=== PATIENT | male | born 1960 | race Hispanic/Latino ===

== ENCOUNTER 2016-11-17 07:47 | Emergency (ER) | payer MEDICAID | END 2016-11-17 08:00 | disposition left against medical advice (07) | LOC: ED 07:47 | DX: R10.10 Upper abdominal pain, unspecified (principal); M54.9 Dorsalgia, unspecified; Z53.21 Procedure and treatment not carried out due to patient leaving prior to being seen by health care provider ==

== ENCOUNTER 2017-02-14 08:39 | Emergency (ER) | payer MEDICAID ==
[2017-02-14 08:50] VITALS: BP 108/78
[2017-02-14 09:16] LABS: Basophils % (Auto) 1.1 % (0.0-1.8); Eosinophils % (Auto) 0.9 % (0.0-4.3); Hematocrit 30.8 % (35.5-45.6); Mean Corpuscular HGB Conc 33 % (32-34); Mean Corpuscular Hemoglobin 27 pg (28-32); Mean Corpuscular Volume 83 fl (84-94); Platelet Count 120 K/mm3 (140-440); Red Blood Count 3.71 M/mm3 (3.65-5.03); White Blood Count 4.4 K/mm3 (4.5-11.0)
[2017-02-14 09:33] LABS: Anion Gap 18 mmol/L; BUN/Creatinine Ratio 8.33; Blood Urea Nitrogen 5 mg/dL (9-20); Calcium 8.1 mg/dL (8.4-10.2); Carbon Dioxide 23 mmol/L (22-30); Chloride 102.6 mmol/L (98-107); Glucose 93 mg/dL (75-100); Potassium 3.8 mmol/L (3.6-5.0); Sodium 140 mmol/L (137-145)
[2017-02-14 09:36] LABS: Red Cell Distribution Width 23.8 % (13.2-15.2)
[2017-02-14 09:44] LABS: Bilirubin,Urine NEG (Negative); Blood,Urine NEG (Negative); Ketones,Urine NEG (Negative); Leukocyte Esterase,Urine NEG (Negative); Nitrite,Urine NEG (Negative); Protein,Urine <15 mg/dL mg/dL (Negative); Urobilinogen,Urine < 2.0 mg/dL (<2.0); WBC,Urine < 1.0 /HPF (0.0-6.0)
--- NOTE | 2017-02-16 07:37 | ED Elopement Review ---
ED Pt Elopement review - Results review Lab results: Laboratory Tests 02/14/17 02/14/17 02/14/17 09:01 09:01 09:18 WBC 4.4 L RBC 3.71 Hgb 10.0 L Hct 30.8 L MCV 83 L MCH 27 L MCHC 33 RDW 23.8 H Plt Count 120 L Lymph % (Auto) 38.2 H Bennett % (Auto) 11.7 H Eos % (Auto) 0.9 Baso % (Auto) 1.1 Lymph # 1.7 Bennett # 0.5 Eos # 0.0 Baso # 0.0 Seg Neutrophils % 48.1 Seg Neutrophils # 2.1 Sodium 140 Potassium 3.8 Chloride 102.6 Carbon Dioxide 23 Anion Gap 18 BUN 5 L Creatinine 0.6 L Estimated GFR > 60 BUN/Creatinine Ratio 8.33 Glucose 93 Calcium 8.1 L Urine Color Yellow Urine Turbidity Clear Urine pH 5.0 Ur Specific [place] 1.011 Urine Protein <15 mg/dl Urine Glucose (UA) Neg Urine Ketones Neg Urine Blood Neg Urine Nitrite Neg Urine Bilirubin Neg Urine Urobilinogen < 2.0 Ur Leukocyte Esterase Neg Urine WBC (Auto) < 1.0 Urine RBC (Auto) 2.0 U Epithel Cells (Auto) 1.0 - Call Back decision Pt Call Back Decision: Pt to F/U with PMD (lab abn prob CLD)
== END 2017-02-14 09:05 | disposition left against medical advice (07) ==
LOC: ED 08:39
DX: R11.2 Nausea with vomiting, unspecified (principal); Z53.21 Procedure and treatment not carried out due to patient leaving prior to being seen by health care provider
CPT/HCPCS: 36415; 80048; 81001; 85025

== ENCOUNTER 2017-09-04 15:47 | Emergency (ER) | payer MEDICAID ==
[2017-09-04 16:04] VITALS: BP 105/67
[2017-09-04 16:34] LABS: Hematocrit 33.3 % (35.5-45.6); Hemoglobin 10.2 gm/dl (11.8-15.2); Mean Corpuscular HGB Conc 31 % (32-34); Mean Corpuscular Volume 78 fl (84-94); Platelet Count 215 K/mm3 (140-440); Red Blood Count 4.26 M/mm3 (3.65-5.03); White Blood Count 6.7 K/mm3 (4.5-11.0)
[2017-09-04 16:36] LABS: Mean Corpuscular Hemoglobin 24 pg (28-32); Red Cell Distribution Width 26.3 % (13.2-15.2)
[2017-09-04 16:48] LABS: Bilirubin,Urine NEG (Negative); Blood,Urine NEG (Negative); Ketones,Urine NEG (Negative); Leukocyte Esterase,Urine NEG (Negative); Mucus,Urine FEW /HPF; Nitrite,Urine NEG (Negative); Protein,Urine <15 mg/dL mg/dL (Negative); Urobilinogen,Urine < 2.0 mg/dL (<2.0)
[2017-09-04 17:00] LABS: Alanine Aminotransferase 56 units/L (7-56); Albumin 4.1 g/dL (3.9-5); Albumin/Globulin Ratio 1.5 %; Alkaline Phosphatase 99 units/L (35-129); Anion Gap 19 mmol/L; BUN/Creatinine Ratio 10; Blood Urea Nitrogen 7 mg/dL (9-20); Calcium 9.2 mg/dL (8.4-10.2); Carbon Dioxide 24 mmol/L (22-30); Chloride 108.2 mmol/L (98-107); Glucose 122 mg/dL (75-100); Lipase 17 units/L (13-60); Potassium 4.4 mmol/L (3.6-5.0); Sodium 147 mmol/L (137-145); Total Protein 6.9 g/dL (6.3-8.2)
[2017-09-04 17:36] LABS: Basophils % (Manual) 0 % (0.0-1.8); Blastocytes % (Manual) 0 %
[2017-09-04 17:37] LABS: Microcytosis 2+; Target Cells Few
[2017-09-04 17:38] LABS: Large Platelets 1+; Ovalocytes 1+; Tear Drop Cells 1+
[2017-09-04 17:39] LABS: Diff Status Complete; Hypochromasia 1+; Platelet Estimate Consistent w Auto
== END 2017-09-04 18:20 | disposition left against medical advice (07) ==
LOC: ED 15:47
DX: R07.9 Chest pain, unspecified (principal); Z53.21 Procedure and treatment not carried out due to patient leaving prior to being seen by health care provider
CPT/HCPCS: 36415; 80048; 80053; 81001; 83690; 84484; 85007; 85025; 93005; 93010

== ENCOUNTER 2017-10-18 06:39 | Emergency (ER) | payer MEDICAID ==
[2017-10-18 09:04] LABS: Basophils % (Auto) 0.6 % (0.0-1.8); Eosinophils # (Auto) 0.4 K/mm3 (0.0-0.4); Eosinophils % (Auto) 4.9 % (0.0-4.3); Hematocrit 32.6 % (35.5-45.6); Hemoglobin 10.4 gm/dl (11.8-15.2); Lymphocytes # (Auto) 1.8 K/mm3 (1.2-5.4); Lymphocytes % (Auto) 22.7 % (13.4-35.0); Mean Corpuscular HGB Conc 32 % (32-34); Mean Corpuscular Volume 74 fl (84-94); Monocytes # (Auto) 0.5 K/mm3 (0.0-0.8); Monocytes % (Auto) 5.8 % (0.0-7.3)
[2017-10-18 09:17] LABS: Mean Corpuscular Hemoglobin 24 pg (28-32); Platelet Count 93 K/mm3 (140-440); Red Cell Distribution Width 24.5 % (13.2-15.2)
[2017-10-18 09:26] LABS: Alanine Aminotransferase 18 units/L (7-56); Albumin 4.3 g/dL (3.9-5); BUN/Creatinine Ratio 7; Blood Urea Nitrogen 5 mg/dL (9-20); Hemolysis Index 14
[2017-10-18 09:35] LABS: Bilirubin,Urine NEG (Negative); Blood,Urine NEG (Negative); Color,Urine Yellow (Yellow); Hyaline Casts,Urine 5 /LPF; Mucus,Urine 1+ /HPF; Nitrite,Urine NEG (Negative); Protein,Urine <15 mg/dL mg/dL (Negative)
[2017-10-18 22:53] VITALS: BP 145/89
[2017-10-18] MEDS ORDERED: NACL 0.9% 1000 ML 1,000 ML IV ONE (23:46)
[2017-10-18] MEDS ORDERED: ZOFRAN IV ONE (23:46)
[2017-10-19] MEDS ORDERED: DILAUDID IV ONE ×2 (00:29→02:27)
[2017-10-19] MEDS ORDERED: ROBITUSSIN AC PO ONE (00:29)
--- NOTE | 2017-10-19 00:54 | XRay Report ---
FINAL REPORT EXAM: XR CHEST ROUTINE 2V HISTORY: cough TECHNIQUE: Four views of the chest were submitted. There are no previous studies available for comparison. FINDINGS: The lungs are emphysematous. There is pleural parenchymal scarring in the left suprahilar area with additional scarring in the left lung base. There is chronic volume loss in the left upper lobe. The heart size is normal. The lungs are not congested. The skeletal structures reveal multilevel disc degeneration in the thoracic spine. There are multiple chronic right-sided fracture deformities. IMPRESSION: Emphysema with chronic volume loss and scarring in the left upper lobe and left lung base. No acute infiltrates or congestion.
[2017-10-19] MEDS ORDERED: DUONEB *Not for PRN Use IH ONE (01:33)
--- NOTE | 2017-10-19 01:34 | Emergency Department Report ---
HPI - General Chief Complaint: Abdominal Pain Time Seen by Provider: 10/18/17 23:51 - HPI HPI: This is a 57-year-old male presents to the emergency department with a complaint of some pain to the upper abdomen that radiates towards his back for the past 3 days. It is associated with some dizziness and some nausea and vomiting. The patient has a history of pancreatic cancer and a partial Whipple procedure and thinks that it is his pancreas. He also has a past medical history of previous lung cancer with lobectomy, diabetes, hypertension and previous pulmonary embolisms. He is on Lovenox and says he has been compliant with his medication. He complains of a two-week history of a cough that is mostly dry. No recent travel or sick contacts at home. He did not take anything for her symptoms prior to presentation. His primary care physician is Dr. Pippa Watson. ED Past Medical Hx - Past Medical History Hx Diabetes: Yes Hx of Cancer: Yes (Pancreatic 2007) Additional medical history: Panchritis - Surgical History Hx Cholecystectomy: Yes Hx Appendectomy: Yes Additional Surgical History: whipple procedure, Left Upper Lobectomy, Tonsilectomy, Mediport place/removed - Social History Smoking Status: Never Smoker - Medications Home Medications: Home Medications Medication Instructions Recorded Confirmed Last Taken Type HYDROcodone/APAP 7.5-325 [[place] 1 each PO Q6HR PRN #14 tablet 11/17/15 Unknown Rx 7.5/325] Insulin Glargine [Lantus] 10 unit SUB-Q QHS 11/17/15 11/17/15 11/16/15 History LORazepam [Ativan] 2 mg PO Q8HR PRN 11/17/15 11/17/15 11/16/15 History Lipase/Protease/Amylase [[place] Dr 1 each PO DAILY 11/17/15 11/17/15 11/16/15 History 3,000 Units Capsule] Ondansetron [Zofran Odt] 4 mg PO Q6H PRN #7 tab.rapdis 11/17/15 Unknown Rx Potassium Chloride 10 meq PO QDAY 11/17/15 11/17/15 11/16/15 History metFORMIN [Glucophage] 500 mg PO BID 11/17/15 11/17/15 11/16/15 History traZODone [Desyrel] 100 mg PO QHS 11/17/15 11/17/15 11/16/15 History ALBUTEROL Inhaler [ProAir HFA 2 puff IH QID PRN #1 inhalation 10/19/17 Unknown Rx Inhaler] Benzonatate [Tessalon Perles] 100 mg PO Q8HR PRN #20 capsule 10/19/17 Unknown Rx Esomeprazole Magnesium [NexIUM] 40 mg PO QDAY #30 capsule. 10/19/17 Unknown Rx oxyCODONE /ACETAMINOPHEN [Percocet 1 tab PO Q6HR PRN #10 tablet 10/19/17 Unknown Rx 5/325] ED Review of Systems ROS: Stated complaint: ABD PAIN Other details as noted in HPI Comment: All other systems reviewed and negative Constitutional: denies: chills, fever Eyes: denies: eye pain, eye discharge, vision change ENT: denies: ear pain, throat pain Respiratory: cough, wheezing Cardiovascular: denies: chest pain, edema Gastrointestinal: abdominal pain, nausea, vomiting Genitourinary: denies: urgency, dysuria Musculoskeletal: denies: back pain, joint swelling, arthralgia Skin: denies: rash, lesions Neurological: denies: headache, weakness, paresthesias Physical Exam - Physical Exam Vital Signs: Vital Signs 10/18/17 10/18/17 07:53 22:51 Temperature 98.0 F 98.0 F Pulse Rate 112 H 95 H Respiratory 20 18 Rate Blood Pressure 115/84 145/89 O2 Sat by Pulse 99 98 Oximetry Physical Exam: GENERAL: The patient is well-developed well-nourished. HENT: Normocephalic. Atraumatic. Patient has moist mucous membranes. EYES: Extraocular motions are intact. Pupils equal reactive to light bilaterally. NECK: Supple. Trachea is midline. CHEST/LUNGS: Mild wheezing throughout the chest. No tachypnea or accessory muscle use. There is a dry cough heard with some coughing fits. There is no respiratory distress noted. HEART/CARDIOVASCULAR: Regular. There is no tachycardia. There is no murmur. ABDOMEN: Abdomen is soft. There is some tenderness to palpation to the upper quadrants of the abdomen. No guarding or rebound tenderness. Patient has normal bowel sounds. There is no abdominal distention. SKIN: Skin is warm and dry. NEURO: The patient is awake, alert, and oriented. The patient is cooperative. The patient has no focal neurologic deficits. The patient has normal speech and gait. MUSCULOSKELETAL: There is no tenderness or deformity. There is no limitation range of motion. There is no evidence of acute injury. ED Course Vital Signs 10/18/17 10/18/17 07:53 22:51 Temperature 98.0 F 98.0 F Pulse Rate 112 H 95 H Respiratory 20 18 Rate Blood Pressure 115/84 145/89 O2 Sat by Pulse 99 98 Oximetry - EJ/Peripheral Line Arm R Time Out Performed: Yes Indications: other (Needed 22 G IV for Contrast CT) Skin Cleansed in Sterile Fashion: Yes Size: 22 Dressing Placed: Tegaderm, tape Patient Tolerated Procedure: well ED Medical Decision Making - Lab Data Result diagrams: 10/18/17 08:52 10/18/17 08:52 - Radiology Data Radiology results: report reviewed EXAM: CT ABDOMEN PELVIS W CON HISTORY: epigastric pain, hx of pancreatic ca TECHNIQUE: Routine axial imaging was obtained of the abdomen and pelvis following the intravenous injection of 100 cc of Omnipaque 300. Sagittal and coronal reconstructions were reviewed. Axial delayed imaging was also obtained for evaluation of the kidneys ureters and bladder. There are no previous studies available for comparison. FINDINGS: The lung bases reveal emphysematous changes with scarring in the left lower lobe. Pleural fluid is not seen. There is a small hiatal hernia. The stomach is normal size reveals markedly thickened gastric folds. With this represents a normal variant or is related to gastritis is uncertain. The liver is normal in size and reveals pneumobilia most likely related from previous biliary intervention. The gallbladder has been removed. The common bile duct has a maximal diameter of 9.2 millimeters. The adrenal glands and spleen appear normal. The kidneys enhance normally. There is no evidence of hydronephrosis. The pancreas reveals multiple coarse calcifications with dilatation of the pancreatic duct compatible with chronic calcific pancreatitis. No definite mass is seen in the pancreas. There is no evidence of peripancreatic lymphadenopathy or periportal lymphadenopathy. There calcification of the abdominal aorta. The bowel loops are normal in caliber. There is no evidence of free fluid or adenopathy. The appendix is not seen. In the pelvis prostate gland and bladder appear normal. The skeletal structures reveal arthritic changes lumbar spine. IMPRESSION: Changes of the pancreas compatible with chronic calcific pancreatitis. No evidence of neoplasia or acute pancreatitis. Cholecystectomy with pneumobilia. No evidence of biliary tree dilatation. Emphysematous changes both lung bases the scarring in the left lower lobe. Considerable thickening of the gastric folds in the body and fundic region of the stomach as described. With this represents normal variant with the possibility of gastritis is uncertain. Follow-up study recommended. Transcribed By: HEIDI Dictated By: TIMOTHY LEGER MD Electronically Authenticated By: TIMOTHY LEGER MD Signed Date/Time: 10/18/172235 EXAM: XR CHEST ROUTINE 2V HISTORY: cough TECHNIQUE: Four views of the chest were submitted. There are no previous studies available for comparison. FINDINGS: The lungs are emphysematous. There is pleural parenchymal scarring in the left suprahilar area with additional scarring in the left lung base. There is chronic volume loss in the left upper lobe. The heart size is normal. The lungs are not congested. The skeletal structures reveal multilevel disc degeneration in the thoracic spine. There are multiple chronic right-sided fracture deformities. IMPRESSION: Emphysema with chronic volume loss and scarring in the left upper lobe and left lung base. No acute infiltrates or congestion. Transcribed By: HEIDI Dictated By: TIMOTHY LEGER MD Electronically Authenticated By: TIMOTHY LEGER MD Signed Date/Time: 10/18/172051 - Medical Decision Making Patient presents with some upper abdominal pain that he believes is secondary to pancreatitis. He also complains of this coughing fit that he has has been going on for a few weeks. His labs are mostly unremarkable including no leukocytosis, no electrolyte abnormalities or renal insufficiency. He has normal belly labs including bilirubin, lipase and LFTs and his urinalysis is clean. CT of the abdomen and pelvis with IV contrast does not show any pancreatitis but does show some thickening of the stomach that could be consistent with gastritis. Patient does have a history of GERD. Chest x-ray does not show any acute infiltrates, pleural effusions or any other acute process. Vital signs stable throughout his ED course including being afebrile. He had some improvement of his abdominal pain with a few doses of pain medication. He says that he does take a PPI and a regular basis but he just prefers to get it [id number] and get a generic version. Nonetheless, the patient was discharged home with an albuterol inhaler, a PPI, Tessalon Perles for cough and a small amount of pain medication. He was given a referral for gastroenterology and he was encouraged to return to the emergency Department with any worsening of symptoms or any acute distress. - Differential Diagnosis pancreatitis, gastritis, cholecystitis, colitis, pneumonia, bronchitis Critical Care Time: No Critical care attestation.: If time is entered above; I have spent that time in minutes in the direct care of this critically ill patient, excluding procedure time. ED Disposition Clinical Impression: Bronchospasm, Cough Abdominal pain Qualifiers: Abdominal location: upper abdomen, unspecified Qualified Code(s): R10.10 - Upper abdominal pain, unspecified Gastritis Qualifiers: Gastritis type: unspecified gastritis Chronicity: acute Gastritis bleeding: without bleeding Qualified Code(s): K29.00 - Acute gastritis without bleeding Chronic pancreatitis Qualifiers: Pancreatitis type: unspecified pancreatitis type Qualified Code(s): K86.1 - Other chronic pancreatitis Disposition: TO HOME OR SELFCARE Is pt being admited?: No Condition: Stable Instructions: Gastritis (ED), Diet for Ulcers and Gastritis (ED), Abdominal Pain (ED), Bronchospasm (ED) Additional Instructions: Please follow-up with your primary care physician in the next few days. Return to the emergency Department with any worsening of your symptoms are any acute distress. I have given you a referral for a local greenhouse florist, Dr. Watson. You have been prescribed a medication that is sedating and therefore should not be taken prior to driving, working, and responsible for children and in no way should be mixed with alcohol of any quantity. Prescriptions: ALBUTEROL Inhaler [ProAir HFA Inhaler] 2 puff IH QID PRN #1 inhalation PRN Reason: Shortness Of Breath Benzonatate [Tessalon Perles] 100 mg PO Q8HR PRN #20 capsule PRN Reason: Cough Esomeprazole Magnesium [NexIUM] 40 mg PO QDAY #30 capsule. oxyCODONE /ACETAMINOPHEN [Percocet 5/325] 1 tab PO Q6HR PRN #10 tablet PRN Reason: Pain Referrals: PRIMARY CARE, [Primary Care Provider] - 3-5 Days DAYAMI WATSON MD [Staff Physician] - 3-5 Days Time of Disposition: 04:13
--- NOTE | 2017-10-19 02:38 | Cat Scan Report ---
FINAL REPORT EXAM: CT ABDOMEN PELVIS W CON HISTORY: epigastric pain, hx of pancreatic ca TECHNIQUE: Routine axial imaging was obtained of the abdomen and pelvis following the intravenous injection of 100 cc of Omnipaque 300. Sagittal and coronal reconstructions were reviewed. Axial delayed imaging was also obtained for evaluation of the kidneys ureters and bladder. There are no previous studies available for comparison. FINDINGS: The lung bases reveal emphysematous changes with scarring in the left lower lobe. Pleural fluid is not seen. There is a small hiatal hernia. The stomach is normal size reveals markedly thickened gastric folds. With this represents a normal variant or is related to gastritis is uncertain. The liver is normal in size and reveals pneumobilia most likely related from previous biliary intervention. The gallbladder has been removed. The common bile duct has a maximal diameter of 9.2 millimeters. The adrenal glands and spleen appear normal. The kidneys enhance normally. There is no evidence of hydronephrosis. The pancreas reveals multiple coarse calcifications with dilatation of the pancreatic duct compatible with chronic calcific pancreatitis. No definite mass is seen in the pancreas. There is no evidence of peripancreatic lymphadenopathy or periportal lymphadenopathy. There calcification of the abdominal aorta. The bowel loops are normal in caliber. There is no evidence of free fluid or adenopathy. The appendix is not seen. In the pelvis prostate gland and bladder appear normal. The skeletal structures reveal arthritic changes lumbar spine. IMPRESSION: Changes of the pancreas compatible with chronic calcific pancreatitis. No evidence of neoplasia or acute pancreatitis. Cholecystectomy with pneumobilia. No evidence of biliary tree dilatation. Emphysematous changes both lung bases the scarring in the left lower lobe. Considerable thickening of the gastric folds in the body and fundic region of the stomach as described. With this represents normal variant with the possibility of gastritis is uncertain. Follow-up study recommended.
== END 2017-10-19 05:03 | disposition home or self-care (01) ==
LOC: ED 06:39
DX: J98.01 Acute bronchospasm (principal); E11.9 Type 2 diabetes mellitus without complications; Z90.49 Acquired absence of other specified parts of digestive tract
CPT/HCPCS: 36415; 71046; 74177; 80053; 81001; 83690; 85025; 93005; 93010; 94640; 96361; 96374; 96375; 96376; 99285; J1170; J2405; J7030; Q9967